=== PATIENT | female | born 1960 | race Caucasian/White ===

== ENCOUNTER 2024-11-30 14:47 | Emergency (ER) | payer MEDICARE, MEDICAID, SELFPAY ==
[2024-11-30 15:00] VITALS: PULSE 82; RESP 18; O2SAT 96
[2024-11-30 15:18] VITALS: BP 139/76; PULSE 67; RESP 18; TEMP 36.6; O2SAT 95; BMI 38.0
--- NOTE | 2024-11-30 15:26 | XR_ITS ---
Examination: Wrist, right 2 views Technique: Wrist AP,, 2 views Date and time of exam: December 10, 2024 1559 hours INDICATIONS: Patient fell today with injury of the wrist, wrist pain. FINDINGS: Acute fractures distal radius, intra-articular through the radial metaphyseal region, impaction noted on the lateral view at the fracture site Fracture ulnar styloid tip IMPRESSION: Acute comminuted impacted fracture distal radial metaphysis
--- NOTE | 2024-11-30 15:27 | EDNOTE_ITS ---
Upper Extremity Injury RME/HPI General Chief Complaint: Hand/Wrist Problems Stated Complaint: FALL,RIGHT WRIST INJURY Time Seen by Provider: 11/30/24 15:22 Arrival date/time: 11/30/24 14:47 RME / HPI RME / HPI narrative: 64-year-old female patient came in for evaluation regarding right wrist injury. Patient tripped and fell sustaining abrasions to bilateral anterior knee, and deformity to the right wrist. Incident happened few minutes prior to ER visit. Patient denies any head injury no LOC no neck pain no other injury patient is ambulatory tetanus vaccination is about 40 years ago. Related Data Previous Rx's ?Medication ?Instructions ?Recorded Cyclobenzaprine * (FLEXERIL *) 10 mg PO Q8HR PRN spasm #20 tabs 09/14/15 Hydrocodone/Acetaminophen * (NORCO 1 tab PO Q4H PRN se adilia pain #20 09/14/15 10/325 *) tabs acetaminophen 300 mg-codeine 30 mg 1 tab PO Q6H PRN pa in #20 tabs 11/30/24 tablet acetaminophen 300 mg-codeine 30 mg 1 tab PO QID PRN pa in #20 tabs 11/30/24 tablet Allergies Allergy/AdvReac Type Severity Reaction Status Date / Time No Known Allergies Allergy Mild NKA Uncoded 11/30/24 15:00 Review of Systems Review of Systems Narrative Review of Systems: Review of system reviewed and within normal limits except mentioned in HPI ED Exam Narrative Physical exam: VITAL SIGNS: Reviewed. GENERAL APPEARANCE: Alert and interactive, follows commands, no acute distress, HEAD AND FACE: Non-traumatic. ENT: PERRL, pink conjunctivitis, eyelid no trauma, Mucous membrane moist. NECK: Supple, nontender, no nuchal rigidity. CHEST: No tenderness, no crepitus, no paradoxical movement, no retractions. LUNGS: Clear, well ventilated, symmetric, no rales, no wheezing, no ronchi, no stridor, good breath sounds bilaterally. HEART: Regular rate, regular rhythm, no murmur, no gallops. ABDOMEN: Soft, positive bowel sounds, nondistended, no guarding, nontender, no rebound, no masses, RECTAL: Deferred. GENITAL: Deferred. NEUROLOGICAL: Gross motor function intact sensory function intact, Appropriate for age. MUSCULOSKELETAL: low back nontender, full range of motion. EXTREMITIES: Right wrist tenderness, swelling with deformity with limitation range of motion. SKIN: Color pink, dry, no rash, no lacerations, no abrasions, no contusions. LYMPHATICS: Deferred. Course Quality Measures none Orders Category Date Time Status CT wrist RT wo con Stat Exams 11/30/24 16:53 Completed XR wrist RT 2V Stat Exams 11/30/24 15:26 Completed ALBUTEROL RT 0.5ml [Proventil Rt 0.5ml] Med 11/30/24 15:26 Discontinued 2.5 mg INH X1 ONE HYDROcodone*/APAP 5/325 [Revere 5/325] Med 11/30/24 15:26 Discontinued 1 tab PO X1 ONE Ketorolac Inj [Toradol Inj] Med 11/30/24 16:54 Discontinued 30 mg IM X1 ONE Sodium Chloride Rt Rachel 0.9% [NS Rt Rachel 0.9%] Med 11/30/24 15:26 Active 3 ml INH PRN PRN TET,DIP/PERT AC (Adult)-Tdap [Boostrix Adult (Tdap) Med 11/30/24 15:27 Discontinued Vacc] 0.5 ml IMI .ONCE ONE Vital Signs Vital signs: Vital Signs Temperature 98 F 11/30/24 15:18 Pulse Rate 67 11/30/24 15:18 Respiratory Rate 18 11/30/24 15:18 Blood Pressure 139/76 H 11/30/24 15:18 Pulse Oximetry (%) 95 11/30/24 15:18 Oxygen Delivery Method Room Air 11/30/24 15:18 Extremity Injury MDM Narrative MDM Narrative:: 64-year-old female patient came in for evaluation regarding right wrist injury. Patient tripped and fell sustaining abrasions to bilateral anterior knee, and deformity to the right wrist. Incident happened few minutes prior to ER visit. Patient denies any head injury no LOC no neck pain no other injury patient is ambulatory tetanus vaccination is about 40 years ago. X-ray of the wrist showed Acute comminuted impacted fracture distal radial metaphysis Sugar-tong splint was applied by me, with direct manipulation. Patient tolerated the procedure well. Distal neurovascular status intact. Able to move and extend the fingers without any pain or limitation. Patient was referred to Dr. Morris orthopedic surgeon on-call, will see the patient in the ED. And happy to see the patient outpatient in the clinic this coming week. Patient data External records reviewed:: None Clinical information provided by:: patient Social determinants that could affect healthcare access:: none Patient has the following chronic illnesses:: Hypertension How is presenting disease/condition affected by chronic disease/condition?: uneffected by Evaluation data The following diagnostics were reviewed and interpreted by me:: radiology exam(s) Lab and/or radiology exams considered but not ordered:: None Interpretation Summary: CT scan of the wrist showed Comminuted intra-articular fractures distal radial metaphysis Mild impaction Sagittal view 28 demonstrates 4 mm separation of the main fracture fragments at the articular surface No significant offset at the main fracture site Fractures of the ulnar styloid tip without major displacement Carpal bones intact IMPRESSION: Acute comminuted intra-articular fractures distal radius as above Medications / Prescriptions Medications or Prescriptions considered but not ordered:: None Medication administrations:: Medication Administration History Sodium Chloride (Sodium Chloride Rt Rachel 0.9% 3 Ml Nebu) 3 ml INH PRN PRN PRN Reason: SOLN Stop: 12/30/24 15:25 Discontinued Medications Hydrocodone Bitart/Acetaminophen (Hydrocodone/Apap 5/325 Tablet) 1 tab PO X1 ONE Stop: 11/30/24 15:27 Last Admin: 11/30/24 16:01 Dose: 1 tab Documented By: NIGHAT Albuterol (Albuterol Rt 2.5 Mg/0.5 Ml Nebu) 2.5 mg INH X1 ONE Stop: 11/30/24 15:27 Last Admin: 11/30/24 15:49 Dose: Not Given Documented By: CONNOR Non-Admin Reason: Not In Room Diphtheria/Tetanus/Acell Pertussis (Diphth,Pertuss(Acell),Tet Vac 0.5 Ml Syr- Adult) 0.5 ml IMi .ONCE ONE Stop: 11/30/24 15:28 Last Admin: 11/30/24 16:01 Dose: 0.5 ml Documented By: NIGHAT Ketorolac Tromethamine (Ketorolac Inj 60 Mg/2 Ml Vial) 30 mg IM X1 ONE Stop: 11/30/24 16:55 Last Admin: 11/30/24 18:20 Dose: Not Given Documented By: NIGHAT Non-Admin Reason: Patient Refused Toradol IM, Boostrix, Revere and albuterol Consultations Consultation(s) initiated? (list below): Yes Consultation #1 (Physician, Specialty, Details): Dr Morris thank you DrMoe Diagnosis Upper Extremity Injury Differential Diagnosis: sprain and strain of wrist and fracture of wrist Most likely diagnosis given after review of the tests above:: Distal radius intra-articular fracture, wrist fracture, status post fall Admission Indicated Admission indicated?: not indicated Admission Request Was there a request for admission?: No Disposition Plan Disposition Plan: Discharge Discharge Attestation Discharge Attestation: The patient was given an opportunity to ask questions and understood the discharge instructions. Discharge instructions specifically effects, indications for sooner follow up or return to the emergency department, and the expected course of current diagnosis. Patient condition: Stable Discharge Plan Plan Patient Disposition: HOME (Self Care) Discharge Disposition comment: Stable Prescriptions/Referrals Prescriptions/Med Rec: New acetaminophen-codeine 300-30 mg tablet 1 tab PO Q6H PRN (Reason: pain) Qty: 20 0RF acetaminophen-codeine 300-30 mg tablet 1 tab PO QID PRN (Reason: pain) Qty: 20 0RF No Action Cyclobenzaprine * (FLEXERIL *) 10 MG tablet 10 mg PO Q8HR PRN (Reason: spasm) Qty: 20 0RF Hydrocodone/Acetaminophen * (NORCO 10/325 *) 1 TAB tablet 1 tab PO Q4H PRN (Reason: severe pain) Qty: 20 0RF Referrals: Ivis Cardenas DO [Primary Care Provider] - In 1 week Abhinav Morris MD [Physician] - 12/03/24 Problem List Clinical Impression: Fracture of wrist Patient/Caregiver Discharge Instructions Discharge Activity: activity as tolerated Education Materials: How [employer] Heal Additional Instructions: Thank you for the opportunity for serving you today. You are stable for discharged . You are advised to: Follow-up with Dr Morris orthopedic surgeon, please call ahead for appointment this coming Tuesday Return to ED for worsening of symptoms Increase oral fluids Take medication as prescribed Elevate your forearm as needed Do not remove the splint until seen by orthopedic surgeon Print Language: Brazilian Stand Alone Forms: [employer]inta Award Info., Patient Portal Info Letter PA/ALEX Supervising Physician MONICA/ALEX Supervising Physician: MD Hayley
[2024-11-30 15:49] VITALS: PULSE 78
[2024-11-30] MEDS: HYDROcodone/APAP 5/325 TABLET 1 TAB PO (16:01)
[2024-11-30] MEDS: DIPHTH,PERTUSS(ACELL),TET VAC 0.5 ML SYR- ADULT IMi (16:01)
--- NOTE | 2024-11-30 16:53 | XR_ITS ---
Examination: CT right wrist, without contrast. 2-D sagittal reconstructions. 2-D coronal reconstructions. 3-D reconstructions. Date and time of exam:November 30, 2024 1714 hours INDICATIONS: Ground-level fall today with fractures right radius, post reduction films CTDI: vol (mGy):4.48 DLP: (mGycm):95.5 Technique: Multiple 1.25 mm axial sections of the right wrist without intravenous contrast have been obtained. 2-D sagittal and coronal reconstructions have been obtained. 3-D reconstructions have been obtained. Low dose protocols were performed. One or more of the following dose reduction techniques were used; automated exposure control, adjustment of the mA and/or KV according to patient size, use of iterative reconstruction technique. Findings: Comminuted intra-articular fractures distal radial metaphysis Mild impaction Sagittal view 28 demonstrates 4 mm separation of the main fracture fragments at the articular surface No significant offset at the main fracture site Fractures of the ulnar styloid tip without major displacement Carpal bones intact IMPRESSION: Acute comminuted intra-articular fractures distal radius as above
== END 2024-11-30 18:48 | disposition home or self-care (01) ==
PROVIDERS: Emergency Provider Emergency Medicine; PCP Family Medicine
DX: S52.571A Other intraarticular fracture of lower end of right radius, initial encounter for closed fracture (principal); W19.XXXA Unspecified fall, initial encounter; Z23 Encounter for immunization
CPT/HCPCS: 73100; 73200; 90471; 90715; 99283; A9270